=== PATIENT | male | born 1995 | race Caucasian/White ===

== ENCOUNTER 2018-12-21 05:32 | Emergency (ER) | payer OTHER, BC, SELFPAY ==
[2018-12-21 05:33] VITALS: BP 132/85; PULSE 95; RESP 16; TEMP 36.6; O2SAT 97; BMI 22.5
--- NOTE | 2018-12-21 06:10 | ED.DEP ---
ED Disposition - Plan for ED Patient: Instructions: ED Avulsion Dermal Referrals: NOT,DEFINED [Primary Care Provider] - [facility]GROUP OF PHYSICIANS] -
--- NOTE | 2018-12-21 06:31 | ED.VISSUMM ---
- ER Visit Summary Date of Service: 12/21/18 Chief Complaint: Left thumb injury History of Present Illness: The patient is a 23 M who presents with a left thumb injury. He had a piece of metal fall onto his hand while at work which had a sharp edge and cut along the side of his left thumb. No other injuries. He is uncertain of his last tetanus immunization. He complains of some throbbing pain. No numbness tingling weakness or loss of function. Physical Examination: Afebrile vitals normal Patient has a 1 x 1 cm? area of skin avulsion along the ulnar side of his left thumb this is a layer of skin that was barely connected and he does have some active venous oozing Normal sensation distally Brisk capillary refill distally Test Results: Not indicated Emergency Department Course and Treatment: Patient has a skin avulsion that was only connected by a thin layer. Just with gentle pressure this pulled free without any significant pain. A hemostatic dressing was applied. [place] gauze wrap and then an elastic dressing was applied. He was advised on supportive care. He understands to return for new or worsening symptoms. Patient will follow up with Worker's Comp. Patient discharged. Treatment Plan: [] Disposition: Discharge Impression: Skin avulsion left thumb This note was generated with [employer] dictation software. It may contain incorrect words, spelling, and punctuation that were not noted in review of the chart prior to signing ED Disposition - Plan for ED Patient: Instructions: ED Avulsion Dermal Referrals: [facility] [GROUP OF PHYSICIANS] - NOT,DEFINED [NON-STAFF] -
[2018-12-21] MEDS: Diphth,Pertuss(Acell),Tet Vac 0.5 ML Vial IM (06:42)
[2018-12-21 07:00] VITALS: BP 126/80; PULSE 85; RESP 18; O2SAT 96
== END 2018-12-21 07:08 | disposition home or self-care (01) ==
PROVIDERS: Emergency Provider Emergency Medicine
DX: S61.002A Unspecified open wound of left thumb without damage to nail, initial encounter (principal); W26.8XXA Contact with other sharp object(s), not elsewhere classified, initial encounter; Y93.9 Activity, unspecified; Y92.9 Unspecified place or not applicable
CPT/HCPCS: 90471; 90715; 99281

== ENCOUNTER → 2023-03-17 | Outpatient (CLI) | payer SELFPAY ==
[2023-03-17 17:07] LABS: Absolute Neutrophil Count 6.7 X10^3/uL (2.0-7.7); Basophil# 0.04 X10^3/uL; Basophil% 0.4 % (0-1); Eosinophil# 0.09 X10^3/uL; Eosinophils% 0.8 % (0-5); Lymphocyte % 32.9 % (19-41); Mean Corp Hgb Conc 35.6 g/dL (32-36); Mean Corpuscular Hgb 32.3 pg (27.0-32.0); Mean Corpuscular Volume 90.8 fL (80-94); Mean Platelet Vol. 10.6 fl (6.2-12.0); Monocyte# 0.65 X10^3/uL; Monocyte% 5.8 % (0-10); NRBC Flagged by Analyzer 0 % (0-5); Neutrophil # 6.72 X10^3/uL (2.7-7.7); Neutrophil % 59.8 % (47-70); Platelet Count 207 K/mm3 (150-450); RBC Distribution Width CV 13.2 % (11.6-14.6); RBC Distribution Width SD 43.5 fl (35.1-43.9); Red Blood Count 5.73 M/mm3 (4.6-6.2); White Blood Count 11.2 K/mm3 (4.4-11.0)
[2023-03-17 17:16] LABS: Hemoglobin 18.5 g/dL (13.0-16.5); POSITIVE COUNT NO; POSITIVE DIFFERENTIAL NO; POSITIVE MORPHOLOGY NO
[2023-03-17 17:30] LABS: AST(SGOT) 57 U/L (15-37); Alanine Aminotransfer ALT/SGPT 141 U/L (16-61); Albumin, Serum 4.3 g/dL (3.2-5.0); Alkaline Phosphatase 86 U/L (45-117); Amylase 65 U/L (25-115); Anion Gap 5 (5-15); BUN 13 mg/dL (7-18); BUN/Creat Ratio 10.1 RATIO (10-20); Chloride 106 mmol/L (98-107); Cholesterol 140 mg/dL (200); Creatinine, Serum 1.29 mg/dL (0.70-1.30); EST Glomerular Filtration Rate 71 mL/min (>60); Est Glom Filt Rate - Afr Amer 85 mL/min (>60); Globulin 4.3 g/dL (2.2-4.2); Glucose 95 mg/dL (74-106); High Density Lipoprotein 30 mg/dL; Lipase 35 U/L (13-75); Potassium 4.2 mmol/L (3.5-5.1); Protein, Total 8.6 g/dL (6.4-8.2); Sodium Level 138 mmol/L (136-145); Thyroid Stim Hormone (TSH) 3.33 uIU/mL (0.358-3.74); Triglycerides 155 mg/dL; Very Low Density Lipoprotein 31 mg/dL (5-40)
[2023-03-17 18:33] LABS: Erythrocyte Sedimentation Rate 7 mm/hr (0-20)
[2023-03-17 18:49] LABS: Platelet Estimate ADEQUATE (ADEQ); Red Cell Morphology N CHROM NORMAL (NORM C&C)
[2023-03-17 18:50] LABS: Anisocytosis RARE; Macrocytosis RARE
[2023-03-17 19:21] LABS: Hepatitis B Surface Antigen Non-Reactive (Nonreactive); Hepatitis C Antibody Non-Reactive (Nonreactive)
[2023-03-17 19:31] LABS: CRP < 2.90 mg/L (0.0-3.0)
[2023-03-21 09:17] LABS: Pathologist Review Reviewed
== END | disposition home or self-care (01) ==
LOC: BIMLAB 14:22
PROVIDERS: Referring Provider Nurse Practitioner Family; Visit Provider Nurse Practitioner Family
DX: Z00.00 Encounter for general adult medical examination without abnormal findings (principal); R10.9 Unspecified abdominal pain; R11.0 Nausea; R79.89 Other specified abnormal findings of blood chemistry
CPT/HCPCS: 36415; 80053; 80061; 82150; 83690; 84443; 85025; 85652; 86140; 86803; 87340

== ENCOUNTER → 2023-04-08 | Outpatient (CLI) | payer SELFPAY ==
--- NOTE | 2023-04-08 07:29 | US_ITS ---
STUDY: ABDOMINAL ULTRASOUND - RIGHT UPPER QUADRANT REASON FOR VISIT: Male, 28 years old elevated lfts TECHNIQUE: Ultrasound evaluation of the right upper quadrant was performed with real-time and static boo-scale imaging. TECHNICAL QUALITY: Adequate. COMPARISON: None. FINDINGS: Liver: The liver is enlarged and measures 20.6 cm. There is increased echogenicity consistent with fatty infiltration. The bile ducts are within normal limits. There is hepatic color flow. The direction of portal flow is hepatopetal. There is no demonstrated mass lesion. Gallbladder: Normal distended gallbladder. The gallbladder wall measures 2.1 mm. There is a negative sonographic Wills''s sign. There is no pericholecystic fluid. There are no gallstones. Common Bile Duct (C.B.D.): The common bile duct measures 4.3 mm. Pancreas: Normal size of the head, body and tail of the pancreas. There is normal echogenicity of the pancreas. There is no demonstrated pancreatic mass or cyst. Right Kidney: Normal size of the right kidney. The right kidney measures 10.8 cm x 5.6 cm x 3.9 cm. Normal renal cortex. The right cortex measures 1.5 cm. There is no demonstrated renal mass or cyst. There is no right hydronephrosis. US/Liver IMPRESSION: Hepatomegaly and diffuse fatty infiltration of the liver. Electronically Signed: Winston Wilder MD at 15:02 EDT ,
== END | disposition home or self-care (01) ==
PROVIDERS: PCP Nurse Practitioner Family; Visit Provider Nurse Practitioner Family
DX: R79.89 Other specified abnormal findings of blood chemistry (principal); D75.1 Secondary polycythemia
CPT/HCPCS: 76705